=== PATIENT | male | born 1985 | race Caucasian/White ===

== ENCOUNTER 2017-09-25 04:58 | Emergency (ER) | payer OTHER ==
[~2017-09-25] VITALS: Ht 180.3 cm; Wt 115.0 kg
[~2017-09-25 04:58] MED LIST: IBUP-1984 PO; IBUP-1986 PO; NO HOME MEDS
[2017-09-25] MEDS ORDERED: ketorolac trometh. 30mg/ml inj. IV ONE (05:20)
[2017-09-25 05:26] LABS: BASOPHILS % (AUTO) 0 % (0-1); EOSINOPHILS # (AUTO) 0.2 X10'3 (0-0.9); EOSINOPHILS % (AUTO) 1.8 % (0-6); HEMOGLOBIN 16.1 g/dl (14.0-17.9); LYMPHOCYTES # (AUTO) 1.3 X10'3 (1.1-4.8); LYMPHOCYTES % (AUTO) 10.4 % (21-51); MEAN CORPUSCULAR HEMOGLOBIN 31.2 PG (27.0-31.0); MEAN CORPUSCULAR VOLUME 89.3 FL (78-98); MEAN PLATELET VOLUME 7.9 FL (7.4-10.4); MONOCYTES # (AUTO) 0.7 X10'3 (0-0.9); MONOCYTES % (AUTO) 5.8 % (2-12); NEUTROPHILS # (AUTO) 10.3 X10'3 (1.8-7.7); PLATELET COUNT 274 X10'3 (140-440); RED BLOOD COUNT 5.15 X10'6 (4.70-6.10); RED CELL DISTRIBUTION WIDTH 13.6 % (11.5-14.5); WHITE BLOOD COUNT 12.6 X10'3 (4.5-11.0)
[2017-09-25 05:34] LABS: CLARITY,URINE Clear (Clear); COLOR,URINE Yellow (Yellow); GLUCOSE, URINE Negative (Neg); KETONES,URINE Negative (Neg); LEUKOCYTE ESTERASE ,URINE Negative (Neg); NITRITES, URINE Negative (Neg); OCCULT BLOOD,URINE Negative (Neg); PROTEIN,URINE Negative (Neg)
[2017-09-25 05:41] LABS: ALANINE AMINOTRANSFERASE 71 U/L (12-78); ALBUMIN 3.8 G/DL (3.4-5.0); ALKALINE PHOSPHATASE 70 IU/L (46-116); ANION GAP 11 (8-16); ASPARTATE AMINO TRANSFERASE 26 U/L (10-37); BILIRUBIN,TOTAL 0.3 MG/DL (0.1-1.0); BLOOD UREA NITROGEN 16 MG/DL (7-18); CALCIUM 9.2 MG/DL (8.5-10.1); CHLORIDE 105 MMOL/L (99-107); CREATININE 1.14 MG/DL (0.60-1.10); GLUCOSE 123 MG/DL (70-104); POTASSIUM 3.9 MMOL/L (3.5-5.1); SODIUM 138 MMOL/L (135-145); TOTAL CARBON DIOXIDE 22.2 MMOL/L (24-32); TOTAL PROTEIN 7.5 G/DL (6.4-8.2); eGFR 76 ML/MIN
[2017-09-25 05:44] LABS: UA COLLECTION TYPE CLN CATCH MIDSTREAM
[2017-09-25] MEDS ORDERED: CIPR-259 PO (06:01)
[2017-09-25] MEDS ORDERED: IBUP-1984 PO (06:01)
[2017-09-25] MEDS ORDERED: METR500T PO (06:01)
[2017-09-25] MEDS ORDERED: HYDR-3965 PO (06:01)
[2017-09-25] MEDS ORDERED: metroNIDAZOLE 500mg tablet PO ONE (06:20)
[2017-09-25] MEDS ORDERED: morphine 4 MG/ML inj SYRINge ONE (06:20)
[2017-09-25] MEDS ORDERED: ondansetron/PF 4mg/2ml inj ONE (06:21)
[2017-09-25] MEDS ORDERED: ciprofloxacin 500MG tablet ONE (06:21)
[2017-09-25 09:12] VITALS: BP 135/70
== END 2017-09-25 06:40 | disposition home or self-care (01) ==
LOC: ER 04:59
DX: R10.30 Lower abdominal pain, unspecified (principal); R11.0 Nausea
CPT/HCPCS: 36415; 74176; 80053; 81003; 85025; 96374; 99285; J1885; J2270; J2405; J3490; J7030

== ENCOUNTER 2017-11-12 04:01 | Emergency (ER) | payer OTHER ==
[~2017-11-12] VITALS: Ht 180.3 cm; Wt 116.8 kg
[~2017-11-12 04:01] MED LIST changes: +METR500T PO
[2017-11-12 04:06] VITALS: BP 144/93
== END 2017-11-12 04:56 | disposition home or self-care (01) ==
LOC: ER 04:02
DX: Z77.21 Contact with and (suspected) exposure to potentially hazardous body fluids (principal); Z79.899 Other long term (current) drug therapy
CPT/HCPCS: 99281

== ENCOUNTER 2018-06-06 15:14 | Emergency (ER) | payer OTHER ==
[~2018-06-06] VITALS: Ht 180.3 cm; Wt 109.1 kg
[~2018-06-06 15:14] MED LIST changes: -METR500T PO
[2018-06-06 15:18] VITALS: BP 148/90
[2018-06-06] MEDS ORDERED: LIDOcaine 1.5% w/epinephrine 1:200,000 5ml ampul IJ ONE (15:30)
[2018-06-06] MEDS ORDERED: LIDOcaine 1% w/epiNEPHrine 1:200,000 30ml vial IJ ONE (15:35)
[2018-06-06] MEDS ORDERED: SULF1TAB49 PO (15:37)
[2018-06-06] MEDS ORDERED: sulfamethoxazole/trimethoprim DS (800/160mg) tablet PO ONE (15:40)
== END 2018-06-06 15:48 | disposition home or self-care (01) ==
LOC: ER 15:14
DX: J86.9 Pyothorax without fistula (principal); Z87.891 Personal history of nicotine dependence; Z79.2 Long term (current) use of antibiotics; Z79.899 Other long term (current) drug therapy
CPT/HCPCS: 10060; 99283; J3490

== ENCOUNTER 2018-06-09 18:04 | Emergency (ER) | payer OTHER ==
[~2018-06-09] VITALS: Ht 180.3 cm; Wt 109.0 kg
[~2018-06-09 18:04] MED LIST changes: +SULF1TAB49 PO
[2018-06-09 18:14] VITALS: BP 170/98
[2018-06-09] MEDS ORDERED: CEPH-572 PO (18:40)
== END 2018-06-09 18:49 | disposition home or self-care (01) ==
LOC: ER 18:04
DX: L02.213 Cutaneous abscess of chest wall (principal)
CPT/HCPCS: 99283

== ENCOUNTER 2018-06-29 13:26 | Emergency (ER) | payer OTHER ==
[~2018-06-29] VITALS: Ht 180.3 cm; Wt 100.0 kg
[~2018-06-29 13:26] MED LIST changes: -SULF1TAB49 PO
[2018-06-29] MEDS ORDERED: normal saline 1000ML IV soln IVB ONE (15:50)
[2018-06-29 16:21] LABS: BASOPHILS % (AUTO) 0.4 % (0-1); EOSINOPHILS % (AUTO) 0.4 % (0-6); HEMATOCRIT 51.9 % (42.0-52.0); HEMOGLOBIN 17.2 g/dl (14.0-17.9); LYMPHOCYTES # (AUTO) 1.5 X10'3 (1.1-4.8); LYMPHOCYTES % (AUTO) 19.7 % (21-51); MEAN CORPUSCULAR HEMOGLOBIN 30.3 PG (27.0-31.0); MEAN CORPUSCULAR HGB CONC 33.1 % (33.0-36.5); MEAN CORPUSCULAR VOLUME 91.5 FL (78-98); MEAN PLATELET VOLUME 7.9 FL (7.4-10.4); MONOCYTES # (AUTO) 0.5 X10'3 (0-0.9); MONOCYTES % (AUTO) 6.8 % (2-12); NEUTROPHILS # (AUTO) 5.7 X10'3 (1.8-7.7); NEUTROPHILS % (AUTO) 72.7 % (42-75); PLATELET COUNT 290 X10'3 (140-440); RED BLOOD COUNT 5.67 X10'6 (4.70-6.10); RED CELL DISTRIBUTION WIDTH 12.4 % (11.5-14.5); WHITE BLOOD COUNT 7.7 X10'3 (4.5-11.0)
[2018-06-29 16:30] LABS: CLARITY,URINE CLEAR (Clear); COLOR,URINE YELLOW (Yellow); GLUCOSE, URINE NEGATIVE (Neg); KETONES,URINE NEGATIVE (Neg); NITRITES, URINE NEGATIVE (Neg); OCCULT BLOOD,URINE NEGATIVE (Neg); PH,URINE 7.5 (4.8-8.0); PROTEIN,URINE NEGATIVE (Neg); UA COLLECTION TYPE CLN CATCH MIDSTREAM; UROBILINOGEN,URINE 0.2 E.U/dL (0.2-1.0)
[2018-06-29 16:31] LABS: LEUKOCYTE ESTERASE ,URINE SMALL (Neg)
[2018-06-29 16:36] LABS: RBC,URINE NONE SEEN /HPF (0-2); WBC,URINE NONE SEEN /HPF (0-4)
[2018-06-29 16:36] LABS: ALANINE AMINOTRANSFERASE 58 U/L (12-78); ALBUMIN 4.1 G/DL (3.4-5.0); ALBUMIN/GLOBULIN RATIO 1.1 (1.1-1.5); ALKALINE PHOSPHATASE 60 IU/L (46-116); ANION GAP 11 (8-16); ASPARTATE AMINO TRANSFERASE 24 U/L (10-37); BILIRUBIN,TOTAL 0.6 MG/DL (0.1-1.0); BLOOD UREA NITROGEN 13 MG/DL (7-18); BUN/CREATININE RATIO 12.7 (5.4-32.0); CALCIUM 9.1 MG/DL (8.5-10.1); CHLORIDE 103 MMOL/L (99-107); CREATININE 1.02 MG/DL (0.60-1.10); GLUCOSE 98 MG/DL (70-104); POTASSIUM 4.1 MMOL/L (3.5-5.1); SODIUM 138 MMOL/L (135-145); TOTAL CARBON DIOXIDE 23.6 MMOL/L (24-32); TOTAL PROTEIN 7.7 G/DL (6.4-8.2); eGFR 86 ML/MIN
[2018-06-29 16:37] LABS: BACTERIA,URINE NONE SEEN /HPF (Neg); MUCUS STRANDS NONE SEEN /LPF (Neg); SQUAMOUS EPITHELIAL CELL,UR FEW /LPF (FEW)
[2018-06-29 18:00] VITALS: BP 134/76
== END 2018-06-29 18:15 | disposition home or self-care (01) ==
LOC: ER 13:26
DX: B34.9 Viral infection, unspecified (principal); R42 Dizziness and giddiness; F17.200 Nicotine dependence, unspecified, uncomplicated; Z79.899 Other long term (current) drug therapy
CPT/HCPCS: 36415; 80053; 81001; 82948; 85025; 87088; 87502; 87503; 93005; 96360; 99284; J7030

== ENCOUNTER 2018-08-01 22:01 | Emergency (ER) | payer OTHER ==
[~2018-08-01] VITALS: Ht 180.3 cm; Wt 104.5 kg
[2018-08-01 23:20] VITALS: BP 137/85
== END 2018-08-01 23:42 | disposition home or self-care (01) ==
LOC: ER 22:02
DX: Z77.21 Contact with and (suspected) exposure to potentially hazardous body fluids (principal); Z79.899 Other long term (current) drug therapy
CPT/HCPCS: 99281

== ENCOUNTER 2019-04-06 00:39 | Emergency (ER) | payer OTHER ==
[~2019-04-06] VITALS: Ht 180.3 cm; Wt 100.0 kg
[2019-04-06] MEDS ORDERED: morphine 4 MG/ML inj SYRINge IV PRN (01:10)
[2019-04-06] MEDS ORDERED: ondansetron/PF 4mg/2ml inj IV ONE (01:10)
[2019-04-06] MEDS ORDERED: normal saline 1000ML IV soln IVB ONE (01:10)
[2019-04-06] MEDS ORDERED: normal saline 1000ml 1,000 ML IV ONE (01:10)
[2019-04-06 01:18] LABS: BASOPHILS % (AUTO) 0.4 % (0-1); EOSINOPHILS # (AUTO) 0.1 X10'3 (0-0.9); EOSINOPHILS % (AUTO) 0.6 % (0-6); HEMATOCRIT 48.9 % (42.0-52.0); HEMOGLOBIN 17.1 g/dl (14.0-17.9); LYMPHOCYTES # (AUTO) 1.3 X10'3 (1.1-4.8); LYMPHOCYTES % (AUTO) 12.6 % (21-51); MEAN CORPUSCULAR HEMOGLOBIN 31.2 PG (27.0-31.0); MEAN CORPUSCULAR HGB CONC 34.9 g/dL (33.0-36.5); MEAN CORPUSCULAR VOLUME 89.3 FL (78-98); MEAN PLATELET VOLUME 7.9 FL (7.4-10.4); MONOCYTES % (AUTO) 9.3 % (2-12); NEUTROPHILS # (AUTO) 8.1 X10'3 (1.8-7.7); NEUTROPHILS % (AUTO) 77.1 % (42-75); PLATELET COUNT 254 X10'3 (140-440); RED BLOOD COUNT 5.47 X10'6 (4.70-6.10); RED CELL DISTRIBUTION WIDTH 13.4 % (11.5-14.5); WHITE BLOOD COUNT 10.6 X10'3 (4.5-11.0)
[2019-04-06 01:51] LABS: ALANINE AMINOTRANSFERASE 56 U/L (12-78); ALBUMIN 4.1 G/DL (3.4-5.0); ALBUMIN/GLOBULIN RATIO 1.1 (1.1-1.5); ALKALINE PHOSPHATASE 62 IU/L (46-116); ANION GAP 13 (8-16); ASPARTATE AMINO TRANSFERASE 26 U/L (10-37); BILIRUBIN,TOTAL 0.4 MG/DL (0.1-1.0); BLOOD UREA NITROGEN 15 MG/DL (7-18); BUN/CREATININE RATIO 14.6 (5.4-32.0); CALCIUM 9.1 MG/DL (8.5-10.1); CHLORIDE 106 MMOL/L (99-107); CREATININE 1.03 MG/DL (0.60-1.10); GLUCOSE 92 MG/DL (70-104); LIPASE 58 U/L (73-393); POTASSIUM 4.2 MMOL/L (3.5-5.1); SODIUM 141 MMOL/L (135-145); TOTAL CARBON DIOXIDE 22.4 MMOL/L (24-32); TOTAL PROTEIN 7.8 G/DL (6.4-8.2); eGFR 84 ML/MIN
[2019-04-06 03:06] VITALS: BP 130/80
== END 2019-04-06 03:08 | disposition home or self-care (01) ==
LOC: ER 00:39
DX: R10.30 Lower abdominal pain, unspecified (principal); R19.7 Diarrhea, unspecified
CPT/HCPCS: 36415; 74176; 80053; 83690; 85025; 85610; 96374; 96375; 99284; J2270; J2405; J7030

== ENCOUNTER 2019-06-12 22:24 | Emergency (ER) | payer OTHER ==
[~2019-06-12] VITALS: Ht 180.3 cm; Wt 87.8 kg
[~2019-06-12 22:24] MED LIST changes: +LIDOcaine 1% W/epiNEPHrine 1:100,000 20ml vial ONE
[2019-06-12 22:35] VITALS: BP 139/89
--- NOTE | 2019-06-13 00:12 | NUR ---
provider I&D'd rt 5th digit, pt stefany well, dressed with bandaids
[2019-06-13] MEDS ORDERED: SULF1TAB49 PO (00:15)
== END 2019-06-13 00:25 | disposition home or self-care (01) ==
LOC: ER 22:25
DX: L03.011 Cellulitis of right finger (principal); Z87.891 Personal history of nicotine dependence; Z79.2 Long term (current) use of antibiotics; Z79.899 Other long term (current) drug therapy
CPT/HCPCS: 10060; 99283

== ENCOUNTER 2019-08-25 21:50 | Emergency (ER) | payer OTHER ==
[~2019-08-25] VITALS: Ht 180.3 cm; Wt 111.4 kg
[~2019-08-25 21:50] MED LIST changes: -LIDOcaine 1% W/epiNEPHrine 1:100,000 20ml vial ONE
[2019-08-25 21:53] VITALS: BP 161/100
[2019-08-25] MEDS ORDERED: benzonatate 100mg capsule PO ONE (22:25)
[2019-08-25] MEDS ORDERED: azithromycin 250mg tablet PO ONE (22:25)
[2019-08-25] MEDS ORDERED: AZIT-63 PO (22:25)
== END 2019-08-25 22:39 | disposition home or self-care (01) ==
LOC: ER 21:50
DX: J20.9 Acute bronchitis, unspecified (principal); F17.210 Nicotine dependence, cigarettes, uncomplicated; Z79.2 Long term (current) use of antibiotics; Z79.899 Other long term (current) drug therapy
CPT/HCPCS: 99283

== ENCOUNTER 2019-10-12 23:38 | Emergency (ER) | payer OTHER ==
[~2019-10-12] VITALS: Ht 180.3 cm; Wt 100.0 kg
[2019-10-12 23:42] VITALS: BP 151/92
[2019-10-13] MEDS ORDERED: acetaminophen 325mg tablet PO ONE
== END 2019-10-13 00:04 | disposition home or self-care (01) ==
LOC: ER 23:38
DX: R10.30 Lower abdominal pain, unspecified (principal); F17.210 Nicotine dependence, cigarettes, uncomplicated; N50.812 Left testicular pain; N50.811 Right testicular pain; Z79.899 Other long term (current) drug therapy
CPT/HCPCS: 99282; 99285

== ENCOUNTER 2019-11-17 23:53 | Emergency (ER) | payer BC, OTHER ==
[~2019-11-17] VITALS: Ht 180.3 cm; Wt 100.0 kg
[2019-11-18 00:12] VITALS: BP 138/67
== END 2019-11-18 00:40 | disposition home or self-care (01) ==
LOC: ER 23:53
DX: L03.012 Cellulitis of left finger (principal); Z79.899 Other long term (current) drug therapy
CPT/HCPCS: 10060; 99282; 99283; 99284

== ENCOUNTER 2020-06-11 00:02 | Emergency (ER) | payer BC, OTHER ==
[~2020-06-11] VITALS: Ht 180.3 cm; Wt 100.0 kg
[2020-06-11 00:14] VITALS: BP 134/90
[2020-06-11] MEDS ORDERED: SULF1TAB49 PO (01:08)
[2020-06-11] MEDS ORDERED: bacitracin 15gm ointment TP ONE (01:15)
[2020-06-11] MEDS: acetaminophen 325mg tablet PO ONE ×2 (01:16→01:23)
[2020-06-11] MEDS ORDERED: acetaminophen 325mg tablet PO ONE (01:20)
== END 2020-06-11 01:36 | disposition home or self-care (01) ==
LOC: ER 00:03
DX: L03.115 Cellulitis of right lower limb (principal); M79.661 Pain in right lower leg; F17.200 Nicotine dependence, unspecified, uncomplicated; Z79.2 Long term (current) use of antibiotics; Z79.899 Other long term (current) drug therapy
CPT/HCPCS: 99283

== ENCOUNTER 2020-06-12 08:44 | Emergency (ER) | payer BC ==
[~2020-06-12] VITALS: Ht 180.3 cm; Wt 100.0 kg
[~2020-06-12 08:44] MED LIST changes: +SULF1TAB49 PO
[2020-06-12] MEDS ORDERED: LIDOcaine 1% W/epiNEPHrine 1:200,000 10ml vial ONE (09:00)
[2020-06-12] MEDS ORDERED: LIDOcaine 1% W/epiNEPHrine 1:200,000 10ml vial IJ ONE (09:20)
[2020-06-12] MEDS ORDERED: LIDOcaine 1% w/epiNEPHrine 1:200,000 30ml vial IJ ONE (09:25)
[2020-06-12 10:14] VITALS: BP 130/76
== END 2020-06-12 10:16 | disposition home or self-care (01) ==
LOC: ER 08:45
DX: L02.415 Cutaneous abscess of right lower limb (principal); Z79.2 Long term (current) use of antibiotics; Z79.899 Other long term (current) drug therapy
CPT/HCPCS: 10060; 93005; 99283

== ENCOUNTER 2020-08-13 19:56 | Emergency (ER) | payer BC ==
[~2020-08-13] VITALS: Ht 180.3 cm; Wt 100.0 kg
[~2020-08-13 19:56] MED LIST changes: -SULF1TAB49 PO
[2020-08-13 20:04] VITALS: BP 145/91
[2020-08-13] MEDS ORDERED: BENZ-16 PO (20:12)
== END 2020-08-13 20:42 | disposition home or self-care (01) ==
LOC: EEVIPCON 19:57 → ER 19:57
DX: J06.9 Acute upper respiratory infection, unspecified (principal); R05 Cough; R19.7 Diarrhea, unspecified; F17.200 Nicotine dependence, unspecified, uncomplicated; Z79.899 Other long term (current) drug therapy
CPT/HCPCS: 36415; 99283

== ENCOUNTER 2020-10-19 03:18 | Emergency (ER) | payer BC, OTHER ==
[~2020-10-19] VITALS: Ht 180.3 cm; Wt 95.0 kg
[2020-10-19 03:57] VITALS: BP 147/101
[2020-10-19] MEDS ORDERED: acetaminophen 325mg tablet PO ONE (06:55)
[2020-10-19] MEDS ORDERED: ibuprofen tablet 400 MG TABLET PO ONE (06:55)
== END 2020-10-19 07:18 | disposition home or self-care (01) ==
LOC: ER 03:19 → EEVIPCON 03:19 → ER 07:18
DX: S09.90XA Unspecified injury of head, initial encounter (principal); Z79.899 Other long term (current) drug therapy; Y08.89XA Assault by other specified means, initial encounter; Y93.89 Activity, other specified; Y92.89 Other specified places as the place of occurrence of the external cause; Y99.8 Other external cause status
CPT/HCPCS: 99283

== ENCOUNTER 2021-04-10 13:49 | Emergency (ER) | payer BC, OTHER ==
[~2021-04-10] VITALS: Ht 180.3 cm; Wt 110.0 kg
[2021-04-10] MEDS ORDERED: HYDR-3965 PO ×2 (14:27→23:34)
[2021-04-10] MEDS ORDERED: AMOX500C2 PO ×2 (14:27→23:34)
[2021-04-10 14:38] VITALS: BP 158/85
[2021-04-10] MEDS ORDERED: METH4TAB81 PO ×2 (23:34→23:48)
[2021-04-10] MEDS ORDERED: METR500T PO ×2 (23:34→23:48)
[2021-04-10] MEDS ORDERED: ONDA4TAB6 PO ×2 (23:34→23:48)
[2021-04-10] MEDS ORDERED: HYDR-3972 PO (23:48)
== END 2021-04-10 14:41 | disposition home or self-care (01) ==
LOC: ER 13:49
DX: K04.7 Periapical abscess without sinus (principal)
CPT/HCPCS: 99283

== ENCOUNTER 2021-04-10 23:08 | Emergency (ER) | payer BC ==
[~2021-04-10] VITALS: Ht 180.3 cm; Wt 102.3 kg
[~2021-04-10 23:08] MED LIST changes: +AMOX500C2 PO; +HYDR-3965 PO
[2021-04-10 23:15] VITALS: BP 156/101
[2021-04-10] MEDS ORDERED: METH4TAB81 PO ×2 (23:34→23:48)
[2021-04-10] MEDS ORDERED: HYDR-3965 PO (23:34)
[2021-04-10] MEDS ORDERED: METR500T PO ×2 (23:34→23:48)
[2021-04-10] MEDS ORDERED: ONDA4TAB6 PO ×2 (23:34→23:48)
[2021-04-10] MEDS ORDERED: AMOX500C2 PO (23:34)
[2021-04-10] MEDS ORDERED: HYDR-3972 PO (23:48)
[2021-04-10] MEDS ORDERED: ketorolac tromethamine 15mg/ml inj. IM ONE (23:50)
[2021-04-10] MEDS ORDERED: dexamethasone 4mg tablet PO ONE (23:50)
== END 2021-04-11 00:21 | disposition home or self-care (01) ==
LOC: ER 23:09
DX: K02.9 Dental caries, unspecified (principal); Z79.899 Other long term (current) drug therapy
CPT/HCPCS: 96372; 99283; J1885

== ENCOUNTER 2021-05-30 13:15 | Emergency (ER) | payer BC ==
[~2021-05-30] VITALS: Ht 180.3 cm; Wt 95.5 kg
[~2021-05-30 13:15] MED LIST changes: -AMOX500C2 PO; -HYDR-3965 PO; +METH4TAB81 PO; +ONDA4TAB6 PO
[2021-05-30 13:30] VITALS: BP 132/90
[2021-05-30] MEDS ORDERED: acetaminophen 325mg tablet PO ONE (13:40)
[2021-05-30] MEDS ORDERED: sulfamethoxazole/trimethoprim DS (800/160mg) tablet PO ONE (13:40)
[2021-05-30] MEDS ORDERED: SULF1TAB45 PO (13:48)
== END 2021-05-30 13:57 | disposition home or self-care (01) ==
LOC: ER 13:16
DX: L03.113 Cellulitis of right upper limb (principal); R07.81 Pleurodynia; Z79.2 Long term (current) use of antibiotics; Z79.899 Other long term (current) drug therapy
CPT/HCPCS: 99283

== ENCOUNTER 2021-06-01 01:34 | Emergency (ER) | payer BC ==
[~2021-06-01] VITALS: Ht 180.3 cm; Wt 95.5 kg
[~2021-06-01 01:34] MED LIST changes: +SULF1TAB45 PO
[2021-06-01] MEDS ORDERED: HYDR-3965 PO (02:25)
[2021-06-01 02:33] VITALS: BP 136/97
== END 2021-06-01 02:34 | disposition home or self-care (01) ==
LOC: ER 01:35
DX: L03.111 Cellulitis of right axilla (principal); L02.411 Cutaneous abscess of right axilla; Z79.2 Long term (current) use of antibiotics; Z79.899 Other long term (current) drug therapy
CPT/HCPCS: 99284

== ENCOUNTER 2021-06-10 06:12 | Outpatient (CLI) | payer BC ==
[~2021-06-10 06:12] MED LIST changes: +HYDR-3965 PO
[2021-06-10 06:57] LABS: ALANINE AMINOTRANSFERASE 50 U/L (12-78); ALBUMIN 3.4 G/DL (3.4-5.0); ALBUMIN/GLOBULIN RATIO 0.9 (1.1-1.5); ALKALINE PHOSPHATASE 66 IU/L (46-116); ANION GAP 9 (8-16); ASPARTATE AMINO TRANSFERASE 39 U/L (10-37); BILIRUBIN,TOTAL 0.3 MG/DL (0.1-1.0); BLOOD UREA NITROGEN 17 MG/DL (7-18); BUN/CREATININE RATIO 13.6 (5.4-32.0); CALCIUM 8.6 MG/DL (8.5-10.1); CHLORIDE 104 MMOL/L (99-107); CHOL/HDL RATIO 3.9 (0.00-4.99); CHOLESTEROL 166 MG/DL (0-200); CREATININE 1.25 MG/DL (0.60-1.10); GLUCOSE 108 MG/DL (70-104); HDL CHOLESTEROL 43 MG/DL (35-60); LDL CHOLESTEROL 83 MG/DL (50-100); POTASSIUM 3.9 MMOL/L (3.5-5.1); SODIUM 136 MMOL/L (135-145); TOTAL CARBON DIOXIDE 22.6 MMOL/L (24-32); TRIGLYCERIDES 187 MG/DL (20-135); eGFR 67 ML/MIN
== END 2021-06-10 23:59 | disposition home or self-care (01) ==
LOC: LAB 06:12
PROVIDERS: ATTEND Physician Assistant
DX: J45.909 Unspecified asthma, uncomplicated (principal); Z83.3 Family history of diabetes mellitus
CPT/HCPCS: 36415; 80053; 80061

== ENCOUNTER 2021-08-27 06:04 | Emergency (ER) | payer OTHER ==
[~2021-08-27] VITALS: Ht 180.3 cm; Wt 100.0 kg
[~2021-08-27 06:04] MED LIST changes: -HYDR-3965 PO; -SULF1TAB45 PO
[2021-08-27 06:06] VITALS: BP 120/84
== END 2021-08-27 07:42 | disposition home or self-care (01) ==
LOC: ER 06:04 → EEVIPCON 06:04 → ER 07:42
DX: Z77.21 Contact with and (suspected) exposure to potentially hazardous body fluids (principal); Z87.81 Personal history of (healed) traumatic fracture; Z79.899 Other long term (current) drug therapy
CPT/HCPCS: 99281

== ENCOUNTER 2022-09-25 00:34 | Emergency (ER) | payer SELFPAY ==
[~2022-09-25] VITALS: Ht 180.3 cm; Wt 100.0 kg
[2022-09-25 00:39] VITALS: BP 165/98
[2022-09-25] MEDS ORDERED: polymyxin B sulf/tmp ophth drops 10ml EACHEYE ONE (01:20)
== END 2022-09-25 01:44 | disposition home or self-care (01) ==
LOC: ER 00:35
DX: B34.9 Viral infection, unspecified (principal); H10.89 Other conjunctivitis; B96.89 Other specified bacterial agents as the cause of diseases classified elsewhere; Z79.899 Other long term (current) drug therapy
CPT/HCPCS: 99283

== ENCOUNTER 2023-04-23 23:19 | Emergency (ER) | payer BC ==
[~2023-04-23] VITALS: Ht 180.3 cm; Wt 127.3 kg
[2023-04-23] MEDS ORDERED: ondansetron/PF 4mg/2ml inj IV ONE (23:35)
[2023-04-23] MEDS ORDERED: LORazepam 2 mg/ml vial IV ONE (23:35)
[2023-04-23] MEDS ORDERED: pantoprazole 40 MG vial IV ONE (23:35)
[2023-04-23] MEDS ORDERED: normal saline 1000ML IV soln IVB ONE (23:35)
[2023-04-23] MEDS ORDERED: pantoprazole 40MG/NS 100ML BAG 100 ML IV ONE (23:50)
[2023-04-24 00:07] LABS: APTT 23 SECONDS (22-32)
[2023-04-24 00:08] LABS: INR 0.9 INR
[2023-04-24 00:09] LABS: ALANINE AMINOTRANSFERASE 97 U/L (12-78); ALBUMIN 3.9 G/DL (3.4-5.0); ALBUMIN/GLOBULIN RATIO 1.1 (1.1-1.5); ALKALINE PHOSPHATASE 82 IU/L (46-116); ANION GAP 10 (8-16); ASPARTATE AMINO TRANSFERASE 42 U/L (10-37); BILIRUBIN,TOTAL 0.4 MG/DL (0.1-1.0); BLOOD UREA NITROGEN 10 MG/DL (7-18); BUN/CREATININE RATIO 9.8 (10.0-20.0); CHLORIDE 102 MMOL/L (99-107); CREATININE 1.02 MG/DL (0.60-1.10); GLUCOSE 125 MG/DL (70-104); POTASSIUM 3.9 MMOL/L (3.5-5.1); SODIUM 136 MMOL/L (135-145); TOTAL CARBON DIOXIDE 23.6 MMOL/L (24-32); TOTAL PROTEIN 7.4 G/DL (6.4-8.2); eCRCL 108 ML/MIN; eGFR 83 ML/MIN
[2023-04-24 00:17] LABS: C-REACTIVE PROTEIN 0.19 MG/DL (0.0-0.5); LACTATE DEHYDROGENASE 155 U/L (85-227); MAGNESIUM 1.9 MG/DL (1.5-2.4); PHOSPHORUS 3.2 MG/DL (2.3-4.5); PRO BRAIN NATRIURETIC PEPTIDE 36 PG/ML (0-125)
[2023-04-24 00:22] LABS: LIPASE 19 U/L (16-77)
[2023-04-24 00:49] LABS: BILIRUBIN,URINE NEGATIVE (Neg); CLARITY,URINE CLEAR (Clear); COLOR,URINE YELLOW (Yellow); GLUCOSE, URINE NEGATIVE (Neg); KETONES,URINE NEGATIVE (Neg); LEUKOCYTE ESTERASE ,URINE NEGATIVE (Neg); NITRITES, URINE NEGATIVE (Neg); OCCULT BLOOD,URINE NEGATIVE (Neg); PROTEIN,URINE NEGATIVE (Neg); UROBILINOGEN,URINE 0.2 E.U/dL (0.2-1.0)
[2023-04-24] MEDS ORDERED: LORazepam 2 mg/ml vial IV ONE (00:50)
[2023-04-24 01:00] LABS: BASOPHILS % (AUTO) 0.6 % (0-1); EOSINOPHILS # (AUTO) 0.1 X10'3 (0-0.9); EOSINOPHILS % (AUTO) 1.4 % (0-6); HEMATOCRIT 46.2 % (42.0-52.0); HEMOGLOBIN 15.9 g/dl (14.0-17.9); LYMPHOCYTES # (AUTO) 2.5 X10'3 (1.1-4.8); LYMPHOCYTES % (AUTO) 36.5 % (21-51); MEAN CORPUSCULAR HEMOGLOBIN 30.7 PG (27.0-31.0); MEAN CORPUSCULAR HGB CONC 34.5 g/dL (33.0-36.5); MEAN PLATELET VOLUME 7.8 FL (7.4-10.4); MONOCYTES # (AUTO) 0.8 X10'3 (0-0.9); MONOCYTES % (AUTO) 11.6 % (2-12); NEUTROPHILS # (AUTO) 3.4 X10'3 (1.8-7.7); NEUTROPHILS % (AUTO) 49.9 % (42-75); PLATELET COUNT 249 X10'3 (140-440); RED BLOOD COUNT 5.19 X10'6 (4.70-6.10); RED CELL DISTRIBUTION WIDTH 13.4 % (11.5-14.5); WHITE BLOOD COUNT 6.8 X10'3 (4.5-11.0)
[2023-04-24 01:04] LABS: UA COLLECTION TYPE CLN CATCH MIDSTREAM
[2023-04-24] MEDS ORDERED: MECL-226 PO (03:19)
[2023-04-24] MEDS ORDERED: ONDA4TAB12 PO ×2 (03:19→04:06)
[2023-04-24] MEDS ORDERED: MECL-302 PO (04:06)
[2023-04-24 05:15] VITALS: BP 117/63; PULSE 79; RESP 16; TEMP 98.3; O2SAT 94
== END 2023-04-24 05:20 | disposition home or self-care (01) ==
LOC: ER 23:19
DX: R53.1 Weakness (principal); Z20.822 Contact with and (suspected) exposure to COVID-19; R53.83 Other fatigue; R11.0 Nausea; Z79.899 Other long term (current) drug therapy
CPT/HCPCS: 36415; 70450; 71045; 80053; 81003; 82948; 83615; 83690; 83735; 83880; 84100; 84484; 85025; 85610; 85651; 85730; 86140; 87811; 93005; 96365; 96375; 99285; C9113; J2060; J2405; J7030

== ENCOUNTER 2023-07-07 19:01 | Emergency (ER) | payer BC ==
[~2023-07-07] VITALS: Ht 180.3 cm; Wt 104.0 kg
[~2023-07-07 19:01] MED LIST changes: +MECL-226 PO; +MECL-302 PO; +ONDA4TAB12 PO
[2023-07-07 21:51] LABS: BILIRUBIN,URINE NEGATIVE (Neg); CLARITY,URINE CLEAR (Clear); COLOR,URINE YELLOW (Yellow); GLUCOSE, URINE NEGATIVE (Neg); KETONES,URINE NEGATIVE (Neg); LEUKOCYTE ESTERASE ,URINE NEGATIVE (Neg); NITRITES, URINE NEGATIVE (Neg); OCCULT BLOOD,URINE NEGATIVE (Neg); PH,URINE 5.5 (4.8-8.0); PROTEIN,URINE NEGATIVE (Neg); UROBILINOGEN,URINE 0.2 E.U/dL (0.2-1.0)
[2023-07-07 21:52] LABS: BASOPHILS % (AUTO) 0.5 % (0-1); EOSINOPHILS # (AUTO) 0.1 X10'3 (0-0.9); EOSINOPHILS % (AUTO) 1.6 % (0-6); HEMATOCRIT 51.5 % (42.0-52.0); HEMOGLOBIN 17.4 g/dl (14.0-17.9); LYMPHOCYTES % (AUTO) 26.4 % (21-51); MEAN CORPUSCULAR HEMOGLOBIN 30.4 PG (27.0-31.0); MEAN CORPUSCULAR HGB CONC 33.9 g/dL (33.0-36.5); MEAN CORPUSCULAR VOLUME 89.9 FL (78-98); MEAN PLATELET VOLUME 7.3 FL (7.4-10.4); MONOCYTES % (AUTO) 13.2 % (2-12); NEUTROPHILS # (AUTO) 4.5 X10'3 (1.8-7.7); NEUTROPHILS % (AUTO) 58.3 % (42-75); PLATELET COUNT 272 X10'3 (140-440); RED BLOOD COUNT 5.73 X10'6 (4.70-6.10); RED CELL DISTRIBUTION WIDTH 13.4 % (11.5-14.5); WHITE BLOOD COUNT 7.7 X10'3 (4.5-11.0)
[2023-07-07 21:55] LABS: UA COLLECTION TYPE CLN CATCH MIDSTREAM
[2023-07-07 22:09] LABS: ALANINE AMINOTRANSFERASE 56 U/L (12-78); ALBUMIN 3.7 G/DL (3.4-5.0); ALBUMIN/GLOBULIN RATIO 0.9 (1.1-1.5); ALKALINE PHOSPHATASE 60 IU/L (46-116); ANION GAP 8 (8-16); ASPARTATE AMINO TRANSFERASE 28 U/L (10-37); BILIRUBIN,TOTAL 0.7 MG/DL (0.1-1.0); BLOOD UREA NITROGEN 17 MG/DL (7-18); BUN/CREATININE RATIO 13.5 (10.0-20.0); CALCIUM 9.1 MG/DL (8.5-10.1); CHLORIDE 101 MMOL/L (99-107); CREATININE 1.26 MG/DL (0.60-1.10); GLUCOSE 133 MG/DL (70-104); LIPASE 15 U/L (16-77); SODIUM 134 MMOL/L (135-145); TOTAL CARBON DIOXIDE 25.4 MMOL/L (24-32); TOTAL PROTEIN 7.7 G/DL (6.4-8.2); eCRCL 87 ML/MIN; eGFR 65 ML/MIN
[2023-07-08 02:02] VITALS: BP 139/78; PULSE 85; RESP 16; TEMP 97.8; O2SAT 99
== END 2023-07-08 01:50 | disposition home or self-care (01) ==
LOC: ER 19:02
DX: R19.7 Diarrhea, unspecified (principal); R10.9 Unspecified abdominal pain; R51.9 Headache, unspecified
CPT/HCPCS: 36415; 80053; 81003; 83690; 85025; 99283

== ENCOUNTER 2023-09-13 20:39 | Emergency (ER) | payer BC ==
[~2023-09-13] VITALS: Ht 180.3 cm; Wt 125.0 kg
[~2023-09-13 20:39] MED LIST changes: +CEPH-585 PO; +SULF1TAB49 PO
[2023-09-13] MEDS: LIDOcaine 1% W/epiNEPHrine 1:100,000 20ml vial SQ ONE (21:30)
[2023-09-13 21:35] VITALS: BP 159/97; PULSE 87; RESP 16; TEMP 98.4; O2SAT 97
== END 2023-09-13 21:37 | disposition home or self-care (01) ==
LOC: ER 20:40
DX: L02.415 Cutaneous abscess of right lower limb (principal); Z79.899 Other long term (current) drug therapy; Z79.2 Long term (current) use of antibiotics
CPT/HCPCS: 10060; 99282; A6266; 10061; 99284; A6258; A6449

== ENCOUNTER 2023-09-15 00:33 | Emergency (ER) | payer BC ==
[~2023-09-15] VITALS: Ht 180.3 cm; Wt 127.3 kg
[2023-09-15 01:45] VITALS: BP 149/92; PULSE 97; RESP 17; TEMP 98.6; O2SAT 95
[2023-09-15] MEDS: bacitracin 15gm ointment TP ONE (01:56)
== END 2023-09-15 02:02 | disposition home or self-care (01) ==
LOC: ER 00:34
DX: Z48.03 Encounter for change or removal of drains (principal); Z79.2 Long term (current) use of antibiotics; Z79.1 Long term (current) use of non-steroidal anti-inflammatories (NSAID)
CPT/HCPCS: 99282; A6258; A6449

== ENCOUNTER 2023-09-16 20:19 | Emergency (ER) | payer BC ==
[~2023-09-16] VITALS: Ht 180.3 cm; Wt 127.0 kg
[2023-09-16 20:24] VITALS: TEMP 98
[2023-09-17] MEDS ORDERED: LIDOcaine 1% W/epiNEPHrine 1:100,000 20ml vial IJ ONE (01:50)
[2023-09-17 04:24] VITALS: BP 107/68; PULSE 89; RESP 14; O2SAT 96
== END 2023-09-17 04:26 | disposition home or self-care (01) ==
LOC: ER 20:19
DX: Z48.00 Encounter for change or removal of nonsurgical wound dressing (principal); M79.661 Pain in right lower leg; R22.41 Localized swelling, mass and lump, right lower limb; Z79.1 Long term (current) use of non-steroidal anti-inflammatories (NSAID); Z79.2 Long term (current) use of antibiotics; Z79.899 Other long term (current) drug therapy; Z87.891 Personal history of nicotine dependence
CPT/HCPCS: 93971; 99284; A6258; A6449

== ENCOUNTER 2023-09-24 10:35 | Outpatient (CLI) | payer BC ==
[~2023-09-24 10:35] MED LIST changes: -SULF1TAB49 PO
[2023-09-24 11:05] LABS: BASOPHILS # (AUTO) 0.1 X10'3 (0-0.2); BASOPHILS % (AUTO) 1.5 % (0-1); EOSINOPHILS # (AUTO) 0.1 X10'3 (0-0.9); EOSINOPHILS % (AUTO) 1.4 % (0-6); HEMATOCRIT 45.8 % (42.0-52.0); HEMOGLOBIN 15.8 g/dl (14.0-17.9); LYMPHOCYTES # (AUTO) 1.8 X10'3 (1.1-4.8); MEAN CORPUSCULAR HEMOGLOBIN 30.7 PG (27.0-31.0); MEAN CORPUSCULAR HGB CONC 34.6 g/dL (33.0-36.5); MEAN CORPUSCULAR VOLUME 88.8 FL (78-98); MEAN PLATELET VOLUME 7.3 FL (7.4-10.4); MONOCYTES # (AUTO) 0.6 X10'3 (0-0.9); MONOCYTES % (AUTO) 11.3 % (2-12); NEUTROPHILS # (AUTO) 2.6 X10'3 (1.8-7.7); NEUTROPHILS % (AUTO) 50.8 % (42-75); PLATELET COUNT 281 X10'3 (140-440); RED BLOOD COUNT 5.16 X10'6 (4.70-6.10); RED CELL DISTRIBUTION WIDTH 13.4 % (11.5-14.5)
[2023-09-24 11:17] LABS: ALANINE AMINOTRANSFERASE 64 U/L (12-78); ALBUMIN 3.7 G/DL (3.4-5.0); ALKALINE PHOSPHATASE 73 IU/L (46-116); ANION GAP 12 (8-16); ASPARTATE AMINO TRANSFERASE 32 U/L (10-37); BILIRUBIN,TOTAL 0.3 MG/DL (0.1-1.0); BLOOD UREA NITROGEN 11 MG/DL (7-18); BUN/CREATININE RATIO 10.1 (10.0-20.0); CALCIUM 8.9 MG/DL (8.5-10.1); CHLORIDE 105 MMOL/L (99-107); CHOL/HDL RATIO 3.2 (0.00-4.99); CHOLESTEROL 165 MG/DL (0-200); CREATININE 1.09 MG/DL (0.60-1.10); GLUCOSE 117 MG/DL (70-104); HDL CHOLESTEROL 51 MG/DL (35-60); LDL CHOLESTEROL 98 MG/DL (50-100); POTASSIUM 4.6 MMOL/L (3.5-5.1); SODIUM 139 MMOL/L (135-145); TOTAL PROTEIN 7.3 G/DL (6.4-8.2); TRIGLYCERIDES 76 MG/DL (20-135); eGFR 77 ML/MIN
== END 2023-09-24 23:59 | disposition home or self-care (01) ==
LOC: LAB 10:35
PROVIDERS: ATTEND Family Medicine
DX: T14.8XXA Other injury of unspecified body region, initial encounter (principal); Z13.220 Encounter for screening for lipoid disorders; Z82.49 Family history of ischemic heart disease and other diseases of the circulatory system; Z83.3 Family history of diabetes mellitus; X58.XXXA Exposure to other specified factors, initial encounter; Y93.89 Activity, other specified; Y92.89 Other specified places as the place of occurrence of the external cause; Y99.8 Other external cause status
CPT/HCPCS: 36415; 80053; 80061; 85025

== ENCOUNTER 2023-10-25 03:40 | Emergency (ER) | payer BC ==
[~2023-10-25] VITALS: Ht 180.3 cm; Wt 127.3 kg
[2023-10-25 03:52] VITALS: BP 141/100
[2023-10-25] MEDS ORDERED: TETRAcaine 0.5% ophthalmic drops 15ml EACHEYE ONE (04:00)
[2023-10-25] MEDS ORDERED: POLOS RIGHTEYE (04:22)
[2023-10-25] MEDS: TETRACAINE 0.5% 4 ML OPHTHALMIC DROPS EACHEYE ONE (04:28)
[2023-10-25 04:33] VITALS: PULSE 82; RESP 18; TEMP 97.3; O2SAT 99
== END 2023-10-25 04:36 | disposition home or self-care (01) ==
LOC: ER 03:41
DX: H10.9 Unspecified conjunctivitis (principal); Z79.2 Long term (current) use of antibiotics; Z79.1 Long term (current) use of non-steroidal anti-inflammatories (NSAID); Z79.899 Other long term (current) drug therapy
CPT/HCPCS: 99283

== ENCOUNTER 2023-12-04 06:20 | Emergency (ER) | payer BC, OTHER ==
[~2023-12-04] VITALS: Ht 180.3 cm; Wt 127.3 kg
[2023-12-04 06:24] VITALS: BP 169/103; PULSE 107; RESP 18; TEMP 97.8; O2SAT 97
== END 2023-12-04 08:27 | disposition home or self-care (01) ==
LOC: ER 06:20
DX: Z77.21 Contact with and (suspected) exposure to potentially hazardous body fluids (principal); Z79.1 Long term (current) use of non-steroidal anti-inflammatories (NSAID); Z79.899 Other long term (current) drug therapy
CPT/HCPCS: 99281

== ENCOUNTER 2024-05-09 11:50 | Outpatient (CLI) | payer OTHER, BC ==
[~2024-05-09 11:50] MED LIST changes: +ONDA-243 PO; -ONDA4TAB12 PO
[2024-05-09 13:14] LABS: FREE T4 (FREE THYROXINE) 0.73 NG/DL (0.73-1.40); THYROID STIMULATING HORMONE 1.36 ulU/ml (0.34-4.50)
[2024-05-13 05:20] LABS: COPPER, PLASMA 71 ug/dL (69-132)
[2024-05-13 13:34] LABS: T-TRANSGLUTAMINASE IGA <2 U/mL (0-3)
== END 2024-05-09 23:59 | disposition home or self-care (01) ==
LOC: LAB 11:50
PROVIDERS: ATTEND Psychiatry & Neurology Neurology
DX: R25.1 Tremor, unspecified (principal); E61.1 Iron deficiency
CPT/HCPCS: 36415; 82310; 82390; 82728; 83520; 83540; 83550; 83655; 83970; 84439; 84443

== ENCOUNTER 2024-12-01 07:24 | Emergency (ER) | payer BC ==
[~2024-12-01] VITALS: Ht 180.3 cm; Wt 121.4 kg
[~2024-12-01 07:24] MED LIST changes: -CEPH-585 PO
--- NOTE | 2024-12-01 08:27 | ELECTROCARDIOGRAPH REPORT ---
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 Ella To Measurements Intervals [place] Rate: 80 P: 28 SD: 175 QRS: 108 QRSD: 88 T: 13 QT: 345 QTc: 398 Interpretive Statements Sinus rhythm Right axis deviation Borderline ST elevation, lateral leads Electronically Signed On 12-01-2024 14:56:[address] Ella To Please click the below link to view image of tracing.
[2024-12-01 08:32] LABS: BASOPHILS % (AUTO) 0.6 % (0-1); EOSINOPHILS # (AUTO) 0.1 X10'3 (0-0.9); HEMATOCRIT 42.7 % (42.0-52.0); HEMOGLOBIN 14.2 g/dl (14.0-17.9); LYMPHOCYTES % (AUTO) 16.3 % (21-51); MEAN CORPUSCULAR HGB CONC 33.3 g/dL (33.0-36.5); MONOCYTES # (AUTO) 0.9 X10'3 (0-0.9); MONOCYTES % (AUTO) 15.7 % (2-12); NEUTROPHILS # (AUTO) 3.8 X10'3 (1.8-7.7); NEUTROPHILS % (AUTO) 65.4 % (42-75); PLATELET COUNT 286 X10'3 (140-440); RED BLOOD COUNT 4.74 X10'6 (4.70-6.10); RED CELL DISTRIBUTION WIDTH 13.6 % (11.5-14.5); WHITE BLOOD COUNT 5.9 X10'3 (4.5-11.0)
--- NOTE | 2024-12-01 09:55 | Physician Documentation ---
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 Associated symptoms include low-grade fever myalgias. One month ago had COVID in DKA along with atrial fibrillation. His rate has been well controlled. He has no complaint of chest pain. That has complaint of cough with deep breath. Otherwise no known ill contacts recent travels does work in the hospital. Medication Reconciliation Allergies: Coded Allergies: No Known Allergies (Unverified , 12/01/24) Scheduled Ibuprofen (Ibuprofen), 1 TAB PO Q8H Ibuprofen* (Motrin*), 800 MG PO TID Meclizine HCl (Meclizine HCl), 1 TAB PO Q8H Meclizine HCl (Meclizine HCl), 1 TAB PO Q8H Methylprednisolone (Medrol Dosepak), 1 TAB PO UD ONDANSETRON ODT 4mg tablet (Ondansetron Odt), 4 MG PO TID ONDANSETRON ODT 4mg tablet (Ondansetron Odt), 4 MG PO Q8H Ondansetron Hcl (Zofran), 1 TAB PO Q6H Miscellaneous Medications Home Med List (No Home Medications), (Reported) Past Medical History Past Medical History: *GI/HEPATOBILIARY* Past Surgical History: no surgical history Smoking: Cigarettes Alcohol Use: None Drug Use: none Lives with: Family Lives In: Home Occupation: employed Review of Systems Constitutional: Reports: chills; Denies: fever RESP: Reports: short of breath, cough, sputum CV: Denies: chest pain, palpitations, edema Integ: Denies: rash Physical Exam Physical Exam Vital Signs: RN Vital Signs have been reviewed: Yes, Temperature: 97.1, Heart Rate: 93, Respiratory Rate: 15, BP: 141/90, Pulse Oximetry: 98, Weight: 121.360 Oxygen Flow Rate: 0 General Appearance: alert, mild distress Head: normal inspection Face: normal inspection Pupils/EOM/Fundus: PERRLA Oropharynx: normal inspection Neck: full range of motion, supple Respiratory: other (Decreased forced expiratory volume) Chest: no accessory muscle use Cardiovascular: normal peripheral pulses Gastrointestinal: normal palpation Extremities: normal range of motion, non-tender Neurologic: oriented x4, pediatric speech language pathologist II-XII nml as tested Motor / Sensory: no motor deficit, no sensory deficit Psychiatric: normal mood/affect Skin: normal color; No: rash Progress Results/Orders Results/Orders Orders - RAIZA LEE PAC Normal Saline 500ml Iv Soln (Sodium Chlo (12/01/24 09:30) Completed Orders - RAIZA LEE PAC Benzonatate Capsule (Tessalon Perles Cap (12/01/24 09:30) Vital Signs 12/01/24 12/01/24 07:25 07:48 Temp 97.1 Pulse 101 93 Resp 14 15 B/P (MAP) 161/112 141/90 (107) Pulse Ox 97 98 O2 Flow Rate 0 Laboratory Tests Test 12/01/24 08:13 White Blood Count 5.9 Red Blood Count 4.74 Hemoglobin 14.2 Hematocrit 42.7 Mean Corpuscular Volume 90.0 Mean Corpuscular Hemoglobin 30.0 Mean Corpuscular Hemoglobin Concent 33.3 Red Cell Distribution Width 13.6 Platelet Count 286 Mean Platelet Volume 8.0 Neutrophils (%) (Auto) 65.4 Lymphocytes (%) (Auto) 16.3 L Monocytes (%) (Auto) 15.7 H Eosinophils (%) (Auto) 2.0 Basophils (%) (Auto) 0.6 Neutrophils # (Auto) 3.8 Lymphocytes # (Auto) 1.0 L Monocytes # (Auto) 0.9 Eosinophils # (Auto) 0.1 Basophils # (Auto) 0.0 CBC Comment Troponin I High Sensitivity 4 Pro-B-Type Natriuretic Peptide 108 Medical Decision Making Differential Diagnosis 39-year-old male status post COVID infection with associated DKA one month ago presents to the emergency department with most recent complaints of allergic rhinitis with painful facial pain history discharge and cough. Labs were reassu ring chest x-ray without obvious lobar infiltrate. Examination history consistent with a sinusitis with secondary cough causing reactive airway disease. Patient to be placed on doxycycline and provided albuterol meter dose inhaler. Tessalon Perles pearles while in the emergency department and IV hydration. Patient remains normo-tensive and sinus rhythm on the monitor. Departure Disposition: HOME / SELF CARE / HOMELESS Impression: Primary Impression: Sinusitis Qualified Codes: J01.10 - Acute frontal sinusitis, unspecified Additional Impression: Acute bronchitis Qualified Codes: J20.9 - Acute bronchitis, unspecified Condition: Improved Discharge Instructions: Acute Bronchitis, Adult, Sinus Infection, Adult Additional Instructions: Through the emergency department you had labs obtained and x-ray imaging obtained. Both the reassuring however require antibiotic coverage along with a metered-dose inhaler and some time off from work. Began antibiotic and use inhaler and cough medication as directed. You may return to work on Sunday and in the interim if worse return to the emergency department. Thank you for visiting [facility]. Referrals: NO PRIMARY CARE PROVIDER (PCP) Prescriptions Albuterol Sulfate Nebs* (Proventil Nebs*) 2.5 Mg/0.5 Ml Vial.neb 2.5 MG IH Q4H PRN for SOB or wheezing for 10 Days, #1 EACH Two puffs every 4-6 hours for cough shortness of breath Prov: RAIZA LEE 12/01/24 Doxycycline Monohydrate (Doxycycline Monohydrate) 100 Mg Capsule 100 MG PO BID, #20 CAP may sub doxycycline hyclate or azithromycin z-pack as prescribed Prov: RAIZA LEE 12/01/24 Education Educated: Patient Educated regarding: diagnosis, treatment Signature Scribe Signature: . Attestation: . RAIZA LEE PAC Dec 01, 2024 09:55
[2024-12-01] MEDS ORDERED: DOXY100C43 PO (10:04)
[2024-12-01] MEDS ORDERED: ALB0.5UD IH (10:04)
[2024-12-01] MEDS: benzonatate 100mg capsule PO ONE (10:10)
[2024-12-01] MEDS: normal saline 500ml IV soln 500 ML IV ONE (10:10)
--- NOTE | 2024-12-01 11:14 | ELECTROCARDIOGRAPH REPORT ---
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 Bryn Townsend Measurements Intervals [place] Rate: 74 P: 24 UT: 176 QRS: 124 QRSD: 91 T: 8 QT: 356 QTc: 395 Interpretive Statements Sinus arrhythmia Left posterior fascicular block Borderline ST elevation, lateral leads Electronically Signed On 12-01-2024 14:56:[address] Bryn Townsend Please click the below link to view image of tracing.
[2024-12-01 11:25] VITALS: BP 155/63; PULSE 77; O2SAT 99
[2024-12-01 11:26] VITALS: RESP 18; TEMP 97.1
--- NOTE | 2024-12-01 14:15 | RADIOLOGY REPORT ---
CHEST RADIOGRAPH Indication: CP Technique: Single frontal view of the chest was obtained Comparison: DI CHEST,SINGLE VIEW on DOS: 04/24/23 FINDINGS: Lines and Tubes: None Lungs: No focal consolidation. Pleura: No effusion. No pneumothorax. Cardiomediastinal contours: Unremarkable Bones: No acute osseous abnormality. IMPRESSION: No acute cardiopulmonary disease.
== END 2024-12-01 11:29 | disposition home or self-care (01) ==
LOC: ER 07:25
DX: J32.9 Chronic sinusitis, unspecified (principal); J20.9 Acute bronchitis, unspecified; I48.91 Unspecified atrial fibrillation; F17.210 Nicotine dependence, cigarettes, uncomplicated; Z79.899 Other long term (current) drug therapy
CPT/HCPCS: 71045; 83880; 84484; 85025; 93005; 96360; 99285; J7040

== ENCOUNTER 2025-06-16 07:03 | Emergency (ER) | payer BC ==
[~2025-06-16] VITALS: Ht 180.3 cm; Wt 109.1 kg
[~2025-06-16 07:03] MED LIST changes: +GEMF600T89 PO; -IBUP-1984 PO; -IBUP-1986 PO; +INSU100I61 SQ; +LANTUS SQ; -MECL-226 PO; -MECL-302 PO; -METH4TAB81 PO; +METO-395 PO; -NO HOME MEDS; -ONDA-243 PO; -ONDA4TAB6 PO; +TOPI-95 PO
--- NOTE | 2025-06-16 07:31 | Physician Documentation ---
History of Present Illness ~ Chief Complaint: Toe pain Stated Complaint: TOE PAIN Time Seen by MD: 07:21 Primary Medical Doctor: [facility] HPI 39-year-old male presenting for left great toe pain. He states that he has a history of a ingrown toenail on this toe and that over the last several days it has become red and painful. He has noticed a small little pus pocket next to the nail bed. Reports that he had this issue in the past and was prescribed some antibiotics. The pain typically gets worse when he does a lot of walking. 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 He otherwise denies any trauma. Denies any fever, chills or any other associated symptoms. Tetanus witin 5 years: Yes Medication Reconciliation Allergies: Coded Allergies: No Known Allergies (Unverified , 01/13/25) Scheduled Amox Tr/Potassium Clavulanate (Augmentin 500-125 Tablet), 1 TAB PO Q12H Gemfibrozil (Gemfibrozil), 1 TAB PO BID, (Reported) Insulin Lispro (Insulin Lispro Kwikpen U-100), 5 UNITS SQ QID, (Reported) Metoprolol Succinate (Metoprolol Succinate), 1 TAB PO DAILY, (Reported) Topiramate (Topiramate), 1 TAB PO BID, (Reported) Scheduled PRN Insulin Glargine,Hum.rec.anlog* (Lantus*), SQ for pro, (Reported) Past Medical History Past Medical History: *GI/HEPATOBILIARY* Past Surgical History: no surgical history Alcohol Use: None Drug Use: none Lives with: Family Lives In: Home Occupation: employed Review of Systems All Other Systems at this time: Reviewed and Negative Physical Exam Vital Signs: Temperature: 98.4, Source: Oral, Heart Rate: 84, Respiratory Rate: 16, BP: 141/98, Pulse Oximetry: 97, Weight: 109.090 Oxygen Flow Rate: 0 Physical Exam I have reviewed the triage vitals. CONST: Well developed and well nourished. In no acute distress HENT: Head Atraumatic EYES: Pupils are equal, round and reactive to light. Normal conjunctiva NECK: Normal range of motion. Supple. CARDIO: Normal rate and regular rhythm. No murmurs, rubs, or gallops. S1, S2. PULM/CHEST: No respiratory distress. Lungs clear to auscultation. No wheeze ABD: Soft and nontender. Nondistended. Bowel sounds normal. No guarding. : Exam deferred MSK: Left lower extremity-great toe with some minimal erythema surrounding the nail bed, there is a small pus pocket present adjacent to the medial side of the nail bed, area is tender to palpation NEURO: Alert and oriented to person, place and time. Moving all extremities SKIN: Warm and dry. PSYCH: Normal mood and affect. Good eye contact. Procedures I&D Procedure : Anesthesia: none Procedure Note Paronychia incision and drainage of the left great toe. 23 gauge needle used for incision. Approximately 1 mL of purulent drainage. Patient tolerated the procedure well with no complications. Progress Results/Orders Results/Orders Completed Orders - VINI GAGE MD Bacitracin Ointment (Bacitracin Ointment (06/16/25 08:00) Vital Signs 06/16/25 07:12 Temp 98.4 Pulse 84 Resp 16 B/P (MAP) 141/98 Pulse Ox 97 O2 Flow Rate 0 Medical Decision Making Additional Comment 39-year-old male presenting with left great toe paronychia with minimal surrounding cellulitis. The paronychia was incised and drained-please see pr reesedure note. He was advised to keep the wound clean and dry for the next day. Also advised on Epsom salt soaks after that for the next several days. Also advised on proper fitting shoes with wide toe base to prevent this from recurring in the future. I will prescribe him some Augmentin for the minimal surrounding cellulitis. Patient advised to monitor for improvement and reso lution of the symptoms. Follow up with primary care physician in the next 2-3 days as needed. Return to ED with any acutely worsening symptoms. Departure Disposition: 01 HOME / SELF CARE / HOMELESS Impression: Primary Impression: Paronychia of great toe, left Additional Impression: Cellulitis of toe of left foot Condition: Stable Discharge Instructions: Paronychia Additional Instructions: Please use medication as prescribed. Please soak your toe with Epsom salt soaks for the next 3-4 days. Advised on using wide toe based shoes to prevent this from recurring. Follow up with the primary care physician in the next 1-2 weeks as needed. Return to the ED with any acutely worsening symptoms. Referrals: NO PRIMARY CARE PROVIDER (PCP) Prescriptions Amox Tr/Potassium Clavulanate (Augmentin 500-125 Tablet) 1 Each Tablet 1 TAB PO Q12H for 7 Days, #14 TAB Prov: VINI GAGE MD 06/16/25 VINI GAGE MD Jun 16, 2025 07:30
[2025-06-16] MEDS ORDERED: AMOX-115 PO (08:01)
[2025-06-16] MEDS: bacitracin 15gm ointment TP ONE (08:19)
[2025-06-16 08:27] VITALS: BP 144/94; PULSE 82; RESP 16; TEMP 98.7; O2SAT 96
== END 2025-06-16 08:32 | disposition home or self-care (01) ==
LOC: ER 07:04
DX: L03.032 Cellulitis of left toe (principal); Z79.4 Long term (current) use of insulin; Z79.899 Other long term (current) drug therapy
CPT/HCPCS: 10060; 99283

== ENCOUNTER 2025-06-20 01:04 | Emergency (ER) | payer BC ==
[~2025-06-20] VITALS: Ht 180.3 cm; Wt 113.6 kg
[~2025-06-20 01:04] MED LIST changes: +AMOX-115 PO
[2025-06-20 01:08] VITALS: BP 174/95; PULSE 93; RESP 16; TEMP 97.1; O2SAT 98
--- NOTE | 2025-06-20 01:37 | Physician Documentation ---
History of Present Illness ~ Chief Complaint: Hyperglycemia Stated Complaint: BLOOD SUGAR Time Seen by MD: 01:33 Primary Medical Doctor: [facility] HPI This is a 39-year-old gentleman with a known history of diabetes who presents for evaluation of hypoglycemia. 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 He does have history of DKA in his vehicle worried that he is experiencing DKA. He checked his glucose in the closed 445. He self administered 9 units of fast acting insulin. He rechecked his glucose 30 minutes later and it was 512. He is feeling tremulous, crampy, but denies any headache, chest pain, difficulty breathing, nausea, vomiting, diarrhea, abdomina l pain. Denies any fever. No concern for tobacco, alcohol or illicit substances use Medication Reconciliation Allergies: Coded Allergies: No Known Allergies (Unverified , 01/13/25) Scheduled Amox Tr/Potassium Clavulanate (Augmentin 500-125 Tablet), 1 TAB PO Q12H Gemfibrozil (Gemfibrozil), 1 TAB PO BID, (Reported) Insulin Lispro (Insulin Lispro Kwikpen U-100), 5 UNITS SQ QID, (Reported) Metoprolol Succinate (Metoprolol Succinate), 1 TAB PO DAILY, (Reported) Topiramate (Topiramate), 1 TAB PO BID, (Reported) Scheduled PRN Insulin Glargine,Hum.rec.anlog* (Lantus*), SQ for pro, (Reported) Past Medical History Past Medical History: *GI/HEPATOBILIARY* Past Surgical History: no surgical history Alcohol Use: None Drug Use: none Lives with: Family Lives In: Home Occupation: employed Review of Systems ROS 10 point review of systems was performed and unless noted above in HPI is negative for acute process/complaint. Physical Exam Vital Signs: Temperature: 97.1, Source: Oral, Heart Rate: 93, Respiratory Rate: 16, BP: 174/95, Pulse Oximetry: 98, Weight: 113.640 Physical Exam Physical examination: GENERAL: Awake, alert, oriented, GCS 15, no apparent distress, non-toxic appearing, answers questions, follows commands appropriately. HEENT: Atraumatic, normocephalic, pupils equal, extraocular muscles intact Active gross movements, sclerae anicteric, mucus membranes moist, no stridor. NECK: Midline, no JVD CARDIOVASCULAR: Good skin perfusion without evidence of pallor, mottling. PULMONARY: Nonlabored, symmetric chest rise, no audible wheezing, no accessory muscle use, no respiratory distress, speaking in full sentences. GASTROINTESTINAL: Not distended. NEUROLOGIC: Lucid with normal mental status. Normal facial symmetry. Moves all extremities symmetrically and with purpose. No truncal ataxia. Speech is fluid without evidence of dysarthria or aphasia, no focal deficits appreciated. EXTREMITIES: Acute deformities Skin: warm, dry PSYCHIATRIC: Normal affect, normal insight, normal concentration. Focused exam: Bilateral lower extremity tremor. Progress Results/Orders Results/Orders Orders - CORDELL PINTO DO Monitor (06/20/25 01:33) Saline Lock (06/20/25 01:33) Ketones,Urine (06/20/25 01:33) BMP (06/20/25 04:14) Completed Orders - CORDELL PINTO DO Cbc/Diff (06/20/25 01:33) CK (06/20/25 01:33) Lipase (06/20/25 01:33) PHOS (06/20/25 01:33) MG (06/20/25 01:33) Normal Saline 1000ml (0.9% Sodium Chlori (06/20/25 01:35) CMP (06/20/25 01:33) Acetone, Serum (06/20/25 01:33) Normal Saline 1000ml (0.9% Sodium Chlori (06/20/25 02:55) Medications Received in ER Medications (Trade) Dose Ordered Sig/Goran Route PRN Reason Start Time Stop Time Status Last Admin Dose Admin (0.9% sodium chloride (NS) 1000ml IV soln) 1,000 ml ONCE ONCE IVB 06/20/25 01:35 06/20/25 01:36 DC 06/20/25 02:26 1,000 ML Sodium Chloride 1,000 ml @ 1,000 mls/hr ONCE ONCE IV 06/20/25 02:55 06/20/25 03:54 DC 06/20/25 03:00 1,000 MLS/HR Vital Signs 06/20/25 01:08 Temp 97.1 Pulse 93 Resp 16 B/P (MAP) 174/95 Pulse Ox 98 Laboratory Tests Test 06/20/25 01:47 06/20/25 02:23 White Blood Count 5.7 Red Blood Count 5.12 Hemoglobin 15.7 Hematocrit 45.7 Mean Corpuscular Volume 89.3 Mean Corpuscular Hemoglobin 30.6 Mean Corpuscular Hemoglobin Concent 34.3 Red Cell Distribution Width 13.3 Platelet Count 269 Mean Platelet Volume 8.7 Neutrophils (%) (Auto) 66.1 Lymphocytes (%) (Auto) 21.3 Monocytes (%) (Auto) 11.0 Eosinophils (%) (Auto) 1.0 Basophils (%) (Auto) 0.6 Neutrophils # (Auto) 3.8 Lymphocytes # (Auto) 1.2 Monocytes # (Auto) 0.6 Eosinophils # (Auto) 0.1 Basophils # (Auto) 0.0 CBC Comment Sodium Level 135 Potassium Level 3.7 Chloride Level 103 Carbon Dioxide Level 21.3 L Anion Gap 11 Blood Urea Nitrogen 18 Creatinine 1.07 Estimated GFR/1.73 m2 78 BUN/Creatinine Ratio 16.8 Glucose Level 449 *H Calcium Level 9.3 Phosphorus Level 2.7 Magnesium Level 1.8 Total Bilirubin 0.4 Aspartate Amino Transf (AST/SGOT) 18 Alanine Aminotransferase (ALT/SGPT) 58 Alkaline Phosphatase 157 H Total Creatine Kinase 51 Total Protein 7.6 Albumin 4.1 Globulin 3.5 Albumin/Globulin Ratio 1.2 Lipase 33 Chemistry Comments Acetone Level Negative Glucometer 414 *H Medical Decision Making Additional information obtaine: old records Findings Facility Status: ED [facility] process The plan was discussed with the patient, who demonstrates clear understanding of the plan and is in agreement with the plan unless otherwise noted in the chart. All questions have been answered, all concerns were addressed unless otherwise documented. I was available throughout their ED stay for frequent reassessment and questions. Differential Diagnoses (considered and possible or likely): [Hyperglycemia without ketosis or acidosis, DKA, HHS, dehydration, electrolyte derangement, less likely urinary tract infection, less likely pneumonia, less likely occult bacteremia. Less likely rhabdomyolysis.] ??Differential Diagnoses (considered and unlikely, not requiring evaluation currently): [See above] MDM Data Please see HPI for the following: Independent Historians and external Records Review. Historian: [Patient] Independent Historians: ?[Record review] Medication Management: [Reviewed medication list] Social History and determinants: [Reviewed] Please see the body of the note for the following: Any independent interpretations of ECG, imaging studies. All vitals signs/haemodynamics, ordered tests were independently reviewed and interpreted by myself. Nursing triage complaint and vitals reviewed, additional nursing notes were reviewed as available and I agree unless otherwise noted or documented in contradiction in the chart Vital Signs: Independently reviewed Labs: Independently interpreted Imaging: Independently interpreted Old Medical Records: Independently reviewed, see HPI for relevant summary and information Pulse Oximetry: [100%] interpreted as [normal on room air] by me [Tobacco Sample Puller: [Regular Rate, Regular rhythm, no ectopy, NSR] reviewed and interpreted by me] Additionally notably showing: [Hemodynamics reviewed. Patient not tachycardic, not febrile, no evidence of hypotension respiratory distress. CBC normal. Chemistry shows no acidosis, normal gap. Glucose is elevated. Uvula is decreased after fluid resuscitation. Lipase is normal. Ketones are negative.] Tests considered but not ordered include: [Imaging has been considerably does not appear to be necessary] Social Determinants of Health Impact: Patient was evaluated in [facility] [place] to healthcare due to below par ratio of patient to medical providers. [] Comorbid Conditions Impacting Present Evaluation and Care/Treatment: [Diabetes] Management Discussions with other Healthcare Providers: [None] Treatment and Disposition Medication Management (Given or considered): [Fluid resuscitation]. See EMR for details Consideration for Hospitalization/Escalation/Deescalation of Care: Admission for observation has been considered, [however the patient is able to tolerate p.o., their symptoms are controlled, they are able to rely on oral medications, and their chief complaint/diagnosis can be managed on outpatient basis.] ?ED Course:?[No evidence of DKA.] ?Shared decision making:?[Patient is hemodynamically stable for discharge home with follow with their primary care provider. [ ] Specific and cautious return precautions provided and discussed with full understanding. Any incidental findings were also discussed and follow up recommendations given. [] All questions answered. Patient/family were able to verbalize back return precautions. Patient/family agree to plan. Copies of imaging and laboratory studies were provided.] Code status:?FULL Please see the full Electronic Medical Record for full details of nursing documentation, medications list, other records of complete past medical history and conditions, vital signs, laboratory studies, and any radiologic study interpretations by radiologists. Portions of this note were completed using [employer] dictation software and as a result there may exist minor errors in spelling. I have reviewed elements of past family and social history and agree as included in note. Differential Dx:Considerations: Include: Other (See body of main note for differential diagnosis) Departure Disposition: HOME / SELF CARE / HOMELESS Impression: Primary Impression: Hyperglycemia without ketosis Condition: Improved Discharge Instructions: Hyperglycemia, [id number] Referrals: NO PRIMARY CARE PROVIDER (PCP) Education Educated: Patient Educated regarding: diagnosis, treatment, prognosis, need for follow up Signature Scribe Signature: No scribe Attestation: The note accurately reflects work and decisions made by me.Cordell Pinto DO 06/20/25 01:37 CORDELL PINTO DO Jun 20, 2025 01:37
[2025-06-20] MEDS: normal saline 1000ML IV soln IVB ONE (02:26)
[2025-06-20 02:34] LABS: MEAN PLATELET VOLUME 8.7 FL (7.4-10.4); RED CELL DISTRIBUTION WIDTH 13.3 % (11.5-14.5)
[2025-06-20 02:45] LABS: ACETONE NEGATIVE (NEGATIVE)
[2025-06-20 02:48] LABS: CREATININE 1.07 MG/DL (0.60-1.10); PHOSPHORUS 2.7 MG/DL (2.3-4.5); TOTAL CARBON DIOXIDE 21.3 MMOL/L (24-32); eCRCL 101 ML/MIN; eGFR 78 ML/MIN
[2025-06-20] MEDS: normal saline 1000ml 1,000 ML IV ONE (03:00)
== END 2025-06-20 04:45 | disposition home or self-care (01) ==
LOC: ER 01:04
DX: E11.65 Type 2 diabetes mellitus with hyperglycemia (principal); Z79.899 Other long term (current) drug therapy; Z79.4 Long term (current) use of insulin
CPT/HCPCS: 36415; 80053; 82009; 82550; 82948; 83690; 83735; 84100; 85025; 99283; J7030